=== PATIENT | male | born 1985 | race Caucasian/White ===

== ENCOUNTER → 2021-03-30 13:48 | Outpatient (CLI) | payer OTHER, SELFPAY ==
--- NOTE | 2021-03-30 | DI.MRI.S_ITS ---
PROCEDURE: MR BRAIN (PITUITARY) WWO CON INDICATIONS: Other localized visual field defect, unspecified e TECHNIQUE: Noncontrast sagittal and axial FLAIR, axial gradient echo, axial diffusion and ADC through the brain. Thin-slice sagittal and coronal T1 spin echo, coronal T2 fast spin echo through the pituitary. After the administration contrast, optional dynamic coronal T1 spin echo, thin-slice coronal and sagittal T1 spin echo images through the pituitary fossa; axial T1 spin echo with fat saturation through the brain. COMPARISON: None. FINDINGS: Image quality: Excellent. Pituitary Gland: Normal size of the sella turcica. Normal position of T1 shortening in the neurohypophysis. Normal size, signal, and enhancement of the pituitary gland. No evidence of pituitary adenoma or other sellar/suprasellar mass. Suprasellar structures including the optic chiasm are unremarkable. CSF Spaces: Ventricles are normal in size and shape. Basal cisterns are patent. No extra-axial fluid collections. Brain: There are a few tiny foci of increased T2/FLAIR signal intensity in the subcortical white matter of the bilateral superior frontal gyri (series 6 images 18, 17, 15). No intracranial bleeds or mass effects. No abnormal intracranial enhancement. Jamil-white matter interface is intact. Diffusion weighted images demonstrate no acute ischemic insults. Brainstem is normal. Normal intravascular flow voids are present. Skull and face: Calvarial marrow is normal in signal. Orbits appear normal. Sinuses: Sinuses and mastoids are predominantly clear. IMPRESSION: Normal appearance of the pituitary gland. A few non-specific foci of increased T2/FLAIR signal in the subcortical white matter of both superior frontal gyri. These are nonspecific but likely reflect sequelae of chronic/recurrent migraine headache or potentially early chronic microvascular ischemic change (unexpected in a patient of this age). Although considered unlikely on the basis of the lesion distribution and morphology, demyelinating disorder could not be strictly excluded. Dictated by: Tapan Anton M.D. on 03/30/2021 at 15:02 Approved by: Tapan Anton M.D. on 03/30/2021 at 15:09
== END ==
DX: H53.459 Other localized visual field defect, unspecified eye (principal)
CPT/HCPCS: 70553